=== PATIENT | male | born 1980 | race Caucasian/White ===

== ENCOUNTER 2020-01-08 13:06 | Emergency (ER) | payer MEDICAID, SELFPAY ==
[~2020-01-08] VITALS: Ht 180.3 cm; Wt 96.8 kg
[2020-01-08 13:34] LABS: MEAN CORPUSCULAR HEMOGLOBIN 31.3 pg (27.5-34.5); MEAN CORPUSCULAR HGB CONC 33.7 g/dL (33.2-36.2); MEAN CORPUSCULAR VOLUME 92.9 fL (81-97); MEAN PLATELET VOLUME 7.6 fL (7.4-10.4); PLATELET COUNT 258 x10^3/uL (130-400); RED BLOOD COUNT 5.39 x10^6/uL (4.38-5.82); RED CELL DISTRIBUTION WIDTH 13.6 % (9.4-14.8)
[2020-01-08 13:48] LABS: ALANINE AMINOTRANSFERASE 41 U/L (12-78); ALBUMIN 3.3 g/dL (3.4-5.0); CALCIUM 8.8 mg/dL (8.5-10.1); CHLORIDE 108 mmol/L (98-107)
[2020-01-08 13:51] LABS: ALKALINE PHOSPHATASE 127 U/L (45-117); BILIRUBIN,TOTAL 0.3 mg/dL (0.2-1.0); CREATININE 1.01 mg/dL (0.7-1.3); TOTAL PROTEIN 7.6 g/dL (6.4-8.2)
[2020-01-08 14:04] LABS: BASOPHILS # (AUTO) 0.02 x10^3/uL (0-0.1); BASOPHILS % (AUTO) 0 % (0-1); EOSINOPHILS # (AUTO) 0.16 x10^3/uL (0-0.4); EOSINOPHILS % (AUTO) 1 % (1-7); LYMPHOCYTES # (AUTO) 1.66 x10^3/uL (1-3.4); LYMPHOCYTES % (AUTO) 10 % (22-44); MD SCAN; MONOCYTES # (AUTO) 0.87 x10^3/uL (0.2-0.8); MONOCYTES % (AUTO) 5 % (2-9); NEUTROPHILS # (AUTO) 14.29 x10^3/uL (1.8-6.8); NEUTROPHILS % (AUTO) 84 % (42-75)
[2020-01-08 14:12] LABS: ANION GAP 5 mmol/L (5-15)
[2020-01-08 15:01] LABS: CULTURE INDICATED? NO; MICROSCOPIC NOT IND
--- NOTE | 2020-01-08 17:06 | NUR ---
ASSUMED CARE OF PT AT THIS TIME FROM LOBBY. AMBULATORY TO ROOM WITH STEADY GAIT. 39 Y/O M PRESENTS STATING "SORE THROAT FOR 2-3 DAYS, CHILLS AND FEVER ON AND OFF, ALSO HAVING ABDOMINAL PAIN FOR SEVERAL MONTHS." DENIES ANY CP, SOB, AARON, DIZZINESS, N/V/D. PT POINTS TO CENTER OF RUQ, RLQ ON LATERAL SIDE FOR PAIN "THIS SPECIFIC AREA ONLY" PER PT. ASSESSMENT COMPLETED. A&OX4. CONT PULSE OX, BP MONITORS APPLIED. VSS. CALL LIGHT IN REACH. FALL PRECAUTIONS IN PLACE. SIDE RAILS UPX2. DR. NOLASCO AT BEDSIDE FOR EVALUATION. AWAITING ADDITIONAL ORDERS.
--- NOTE | 2020-01-08 17:20 | NUR ---
PT IN US. TO MEDICATE UPON RETURN WITH LESTER
[2020-01-08] MEDS ORDERED: DEXAMETHASONE 4 MG TABLET PO ONE (17:30)
--- NOTE | 2020-01-08 17:39 | NUR ---
PT REMAINS IN US
[2020-01-08] MEDS ORDERED: DEXAMETHASONE 4 MG TABLET ONE (17:41)
--- NOTE | 2020-01-08 18:04 | NUR ---
PT REMAINS IN US
--- NOTE | 2020-01-08 18:19 | NUR ---
PT BACK FROM US, RESTING COMFORTABLY. DENIES NEED TO USE RESTROOM. 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 NOLASCO OKAY AND PT REQUEST, PER LUIS "ABSOLUTELY OKAY FOR ANY STERIOD HE NEEDS DIRECTED BY HIS DOCTOR." DISCUSSED WITH DR. NOLASCO, AWARE. MEDICATED PER EMAR FOR SORE THROAT. PT REQUESTING FOOD, "I'LL TAKE ANYTHING, A BURGER, PIZZA, I'M STARVING." TO DISCUSS REQUEST WITH DR. NOLASCO. AWAITING US RESULTS.
[2020-01-08 18:24] VITALS: BP 140/84
--- NOTE | 2020-01-08 18:28 | NUR ---
DISCUSSED PT FOOD REQUEST WITH PEACE STEVEN MD TO ORDER REGULAR DIET TRAY, ORDER PLACED AND DIET OFFICE CALLED. AWAITING RECHECK.
--- NOTE | 2020-01-08 18:39 | NUR ---
DR. NOLASCO AT BEDSIDE FOR RECHECK
--- NOTE | 2020-01-08 18:55 | NUR ---
BEDSIDE REPORT AND TRANSFER OF CARE TO [facility]. PT PROVIDED MEAL TRAY, EATING WITHOUT ANY DIFFICULTY. PT CLEARED FOR DISCHARGE BY DR. NOLASCO. [facility] TO D/C PT.
--- NOTE | 2020-01-08 18:56 | NUR ---
REPORT RECEIVED FROM DOMENIC EVANS. ASSUMED CARE OF PT. PT RESTING ON GURNEY, NO DISTRESS NOTED. MEAL TRAY PROVIDED AND DISCHARGE PAPERWORK/PRESCRIPTIONS DISCUSSED WITH PATIENT. NO QUESTIONS. WILL DC PATIENT WHEN FINISHED WITH MEAL
--- NOTE | 2020-01-08 19:09 | NUR ---
Patient/Caregiver given discharge instructions and they have confirmed that they understand the instructions. Patient ambulatory with steady gait. PT HAS PAPERWORK FROM [facility]. PAPERWORK FILLED OUT, PT OFFERED CAB VOUCHER BUT STATES HE WILL NEED TO CALL THE [facility] TO COME GET HIM. ESCORTED TO DISCHARE DESK.
== END 2020-01-08 19:11 ==
LOC: ED 19:05
DX: G89.29 Other chronic pain (principal); R10.13 Epigastric pain; J02.0 Streptococcal pharyngitis; F17.200 Nicotine dependence, unspecified, uncomplicated
CPT/HCPCS: 36415; 76700; 80053; 80074; 81003; 83690; 85025; 87806; 87880; 99284; G0475